=== PATIENT | female | born 1990 | race Caucasian/White ===

== ENCOUNTER 2020-02-15 20:39 | Observation (INO) | payer BC ==
[~2020-02-15] VITALS: Ht 160 cm; Wt 65.8 kg
[~2020-02-15 20:39] MED LIST: CIPR500T94 PO; NAPR-514 PO; TRAM-48 PO
--- NOTE | 2020-02-15 20:41 | PHYS DOC ---
Past History Past Medical History: No Pertinent History, Anxiety, UTI Past Surgical History: Other Smoking: Non-smoker Alcohol Use: Rarely Drug Use: None General Adult HPI: HPI: ".. I feel like I got the flu.. or maybe that Covid 19.. I was at [facility] office... they tested me for Covid.. 19.. they said it was negative.. but the test came back for H. Fl u.... so they started me on Augmentin.. I took two dosages.. but I still have feelings of fever.. and chills.. hurt all over.. I didn't get a flu shot this year.. I usually don't.... I went to [facility] yesterday.. the just gave me some tylenol... there are people at [place] that had Covid... 19.. I did go in to work for 8 hrs. on .. .. everyone just tells me to self isolate...:' I ve had this intractable headache.. I am very anxious... about this Covid 19 thing.. I tested negative.. but I still worried about .. " Patient is a 29 year old female who presents with above hx and complaints myalgia, arthralgia, malaise, fever, chills, nonproductive cough, sore throat, congestion, rhinorrhea, and flu like symptoms. Patient has been seen in Dr. Schaffer office, Alma Fuentes, and [facility] for same symptoms. Was started on Augmentin twice a day for H. Influenza. [facility] also wrote Rx for Bactrim, which pt. never filled. Patient does not get flu vaccinations. Her children are up-to-date with vaccinations and in the room with her. Patient states she got her vaccinations as a child.. Patient denies any travel outside the [place] area recently. Patient denies any history of immunosuppression. Patient is on city water. Has been exposed to inmates and coworkers at the [facility] who reportedly tested positive for Covid 19. Pt. somewhat poor historian. Initially omitted that she received at [facility] with and Without Contrast of Head for intractable headache work up at [facility] last night.. Pt. also started on amitriptyline 10 mg - this med was not filled. Pt. does not smoke or vape. Pt. denies prior lung issues. There is a family hx of DVT and aneurysms. Her child are well and up to date with their vaccinations. Review of Systems: Review of Systems: Constitutional: feelings of fever and chills Eyes: Denies change in visual acuity HENT: Hx. nasal congestion and sore throat Respiratory: Sometimes a cough Cardiovascular: Denies chest pain or edema GI: Denies abdominal pain, nausea, vomiting, bloody stools or diarrhea : Denies dysuria Musculoskeletal: States her entire body has been hurting the last week . Integument: Denies rash Neurologic: Denies headache, focal weakness or sensory changes Endocrine: Denies polyuria or polydipsia Lymphatic: Denies swollen glands Psychiatric: Denies depression . Hx. of anxiety Heart Score: Risk Factors: Risk Factors: DM, Current or recent (<one month) smoker, HTN, HLP, family history of CAD, obesity. Risk Scores: Score 0 - 3: 2.5% MACE over next 6 weeks - Discharge Home Score 4 - 6: 20.3% MACE over next 6 weeks - Admit for Clinical Observation Score 7 - 10: 72.7% MACE over next 6 weeks - Early Invasive Strategies Family History: Family History: Family hx Aneurysm, DVT, Current Medications: Current Meds: Augmentin Allergies: Allergies: Allergies Coded Allergies Type Severity Reaction Last Updated Verified No Known Drug Allergies 05/06/14 No Physical Exam: PE: Constitutional: Reports acute distress, non-toxic appearance. [] HENT: Normocephalic, atraumatic, bilateral external ears normal, oropharynx moist, mildly injected pharynx, post nasal drainage, no oral exudates, nose swollen turbinates with clear rhinorrhea Eyes: PERRLA, EOMI, conjunctiva normal, no discharge. Fundus benign- limited exam. Neck: Normal range of motion, no tenderness, supple, no stridor. [] Cardiovascular:Heart rate regular rhythm, no murmur [] Lungs & Thorax: Bilateral breath sounds equal apex with scattered wheezes on auscultation [] Abdomen: Bowel sounds normal, soft, no tenderness, no masses, no pulsatile masses. [] Skin: Warm, dry, no erythema, no rash. [] Back: No tenderness, no CVA tenderness. [] Extremities: No tenderness, no cyanosis, no clubbing, ROM intact, no edema. No cording appreciated. Neurologic: Alert and oriented X 3, normal motor function, normal sensory function, no focal deficits noted. DTRs +2 patellar and brachial. Straight leg lift without pain. Ambulatory without problems. Psychologic: Affect very anxious, judgement normal, mood normal. [] EKG: EKG: [] Radiology/Procedures: Radiology/Procedures: Reviewed CT- [facility] 02/14/2020 1830 ( See copy of report. - No mass effect, or sift, no subarachnoid hemorrhage. Did have findings of ground glass infiltrates superior segment of lungs- indicative of Viral or atypical pneumonitis. ) [][address] [id number] IMAGING REPORT Signed PATIENT: CECILIO PACK ACCOUNT: [id number] : 1990 LOCATION: ER AGE: 29 SEX: F EXAM STATUS: REG ER ORD. PHYSICIAN: SHILPA BEST MD REASON: fever, cough PROCEDURE: CHEST PA & LATERAL Chest radiograph 02/15/2020 9:01 PM INDICATION: Fever, cough COMPARISON: None available TECHNIQUE: Frontal and lateral views of the chest are provided. FINDINGS: The cardiomediastinal silhouette is within normal limits. There are no pleural effusions. There is no pulmonary vascular congestion. There is no pneumothorax. The lungs are clear. No significant osseous abnormality is identified. IMPRESSION: No acute cardiopulmonary process. Electronically signed by: Zhen Angulo MD (02/15/2020 9:39 PM) [facility] DICTATED AND SIGNED BY: ZHEN ANGULO MD DATE: 02/15/202138 CC: SHILPA BEST MD; ALMA FUENTES MD ~ Course & Med Decision Making: Course & Med Decision Making Pertinent Labs and Imaging studies reviewed. (See chart for details) Discussed benefit s and complications of spinal tap. Pt. at this time declines spinal tap. Exhibit s UCAR capacity. Patient to continue to push fluids. Get adequate rest. Self isolate for 14 days. No travel. Do not report to work until you complete a 14-day isolation. Avoid crowds. Wear a mask when you are outside the home for essential supplies. Take Tylenol and ibuprofen for pain. Complete your course of Augmentin. Follow-up primary care. Pt. just prior to discharged requested completion of Spinal Tap. Risk and benefits again discussed again.. Pt. has had spinal anesthesia for her previous pregnancies.. Procedure note. Spinal tap":-patient was positioned in a sitting position. Area of lumbar L3-L4 prepped with Betadine and then Kit prep. Sterile draping and use of sterile technique gloves, hat, mask, shield, and sterile gown and gloves. Reprepped lumbar sacral area. Injected 4 cc of 1% lidocaine with epinephrine at the L4 L5 interspaces. Use of a 22-gauge needle cannulated the spinal canal with 1 stick of return of clear fluid . Four aliquots of 1-2+ ml were collected in 4 tubes. Order for cell counts, glucose protein and cultures sent with tubes. No opening pressure done because of minimal spinal fluid return. Pt. tolerated procedure without problems. [] Impression: 1. Hx. of Viral syndrome 2. History of urinary tract infection 3.. History of an influenza B test that was positive ( ? Respiratory panel) - Reportedly not a blood culture - but nasal swab. 4. Hx. Possible Covid 19 Exposure.- worker at [employer] ( Currents have been negative) 5. Anxiety 6. Mild Elevation Sed Rate [address]- at [facility]- Pulmonary patchy ground glass infiltrates and peripheral nodular changes-= Viral type pneumonitis, vs Atypical Pneumonia 8. Intractable Headache- suspect viral vs atypical migraine Pt. admitted to Dr. Schaffer pending labs on spinal tap. With Neuro consult Dr. Monterroso. Will expand antibiotic coverage to cover atypical pneumonia and Haeomophilus Influenza pending labs results . ( Review of CT with and without contrast- from [facility] (Initial gram stain CSF tonight showed no organisms and monocytes.) No fever just prior to admit/ observation. Dragon Disclaimer: Dragon Disclaimer: This electronic medical record was generated, in whole or in part, using a voice recognition dictation system. Departure Departure: Disposition: HOME/RESIDENCE PRIOR TO ADM Condition: STABLE Referrals: ALMA FUENTES MD (PCP) COVID-19 Assessment COVID-19 Patient Risks: Age 65 or older: No Sign of co-morbidity: No Exp to person + for COVID: Yes (possible- co worker at [employer]) COVID-19 Assessment COVID-19 Patient Risks: Age 65 or older: No Sign of co-morbidity: No Exp to person + for COVID: Yes (possible co-worker exposure at [facility]?) Lower respiratory symptoms: Yes (atypical pneumonitis or atypical pneumonia on CT at [facility] - 02/14/2020) Fever: No Comments: Use PPE as supplied. Gloves, mask N 95, shield, hat, shoe covers, - Yellow gown, switch to steri gown in central line kit and gloves for spinal tap. Dragon Disclaimer This chart was dictated in whole or in part using Voice Recognition software in a busy, high-work load, and often noisy Emergency Department environment. It may contain unintended and wholly unrecognized errors or omissions. SHILPA BEST MD Feb 15, 2020 20:41
[2020-02-15] MEDS ORDERED: IV RINGERS SOLUTION,LACTATED 1,000 ML IV SCH (21:30)
--- NOTE | 2020-02-15 21:42 | RAD ---
Chest radiograph 02/15/2020 9:01 PM INDICATION: Fever, cough COMPARISON: None available TECHNIQUE: Frontal and lateral views of the chest are provided. FINDINGS: The cardiomediastinal silhouette is within normal limits. There are no pleural effusions. There is no pulmonary vascular congestion. There is no pneumothorax. The lungs are clear. No significant osseous abnormality is identified. IMPRESSION: No acute cardiopulmonary process. Electronically signed by: Kadi Downs MD (02/15/2020 9:39 PM) [facility]
[2020-02-15 21:44] LABS: BASO % 0 % (0-3); EOS % 0 % (0-3); HEMATOCRIT 38.5 % (36.0-47.0); HEMOGLOBIN 13.1 g/dL (12.0-15.5); LYMPH # 1.1 x10^3/uL (1.0-4.8); LYMPH % 19 % (24-48); MEAN CORPUSCULAR HEMOGLOBIN 32 pg (25-35); MEAN CORPUSCULAR HGB CONC 34 g/dL (31-37); MEAN CORPUSCULAR VOLUME 94 fL (79-100); MONO # 0.4 x10^3/uL (0.0-1.1); MONO % 7 % (0-9); NEUT # 4.2 x10^3uL (1.8-7.7); NEUT % 74 % (31-73); PLATELET COUNT 210 x10^3/uL (140-400); RED BLOOD COUNT 4.08 x10^6/uL (3.50-5.40); WHITE BLOOD COUNT 5.8 x10^3/uL (4.0-11.0)
[2020-02-15 21:47] LABS: AMPHETAMINE/METHAMPHETAMINE NEG (NEG); BARBITURATES NEG (NEG); BENZODIAZEPINES NEG (NEG); CANNABINOIDS NEG (NEG); COCAINE NEG (NEG); METHADONE NEG (NEG); OPIATES NEG (NEG); PHENCYCLIDINE NEG (NEG)
[2020-02-15 21:52] LABS: CALCIUM 8.5 mg/dL (8.5-10.1); CREATININE 0.8 mg/dL (0.6-1.0); GFR 84.2; POTASSIUM 3.4 mmol/L (3.5-5.1)
[2020-02-15 21:53] LABS: BILIRUBIN,URINE NEG (NEG); CLARITY,URINE CLEAR; COLOR,URINE YELLOW; GLUCOSE,URINE NEG (NEG)
[2020-02-15 21:54] LABS: BACTERIA,URINE FEW /HPF (0-FEW); NITRITE,URINE NEG (NEG); RBC,URINE OCC /HPF (0-2); SQUAMOUS EPITHELIAL CELL,UR OCC /LPF; UROBILINOGEN,URINE 0.2 mg/dL (0.2 mg/dL); WBC,URINE OCC /HPF (0-4)
[2020-02-15 21:59] LABS: ALBUMIN 3.5 g/dL (3.4-5.0); DIRECT BILIRUBIN 0.1 mg/dL (0.0-0.2); MAGNESIUM 1.9 mg/dL (1.8-2.4); TOTAL BILIRUBIN 0.7 mg/dL (0.2-1.0); TOTAL PROTEIN 7.8 g/dL (6.4-8.2)
[2020-02-15 22:00] LABS: INFLUENZA A PATIENT NEGATIVE (NEGATIVE); INFLUENZA B PATIENT NEGATIVE (NEGATIVE)
[2020-02-15 22:47] LABS: SEDIMENTATION RATE 31 (0-25)
[2020-02-15] MEDS ORDERED: IV NORMAL SALINE 100ML 100 ML ONE (22:49)
[2020-02-15] MEDS ORDERED: oxyCODONE/APAP 5/325 1 TAB TABLET PO ONE (23:15)
[2020-02-16] MEDS ORDERED: MORPHINE SULFATE 2 MG/ML DISP.SYRIN. ONE (00:08)
[2020-02-16] MEDS ORDERED: MORPHINE SULFATE 2 MG/ML DISP.SYRIN. IVP ONE (00:15)
[2020-02-16] MEDS ORDERED: MORPHINE SULFATE 10 MG/ML SYRINGE. SQ ONE ×2 (00:30→01:00)
[2020-02-16 00:58] LABS: CSF PROTEIN 23.1 mg/dL (15.0-45.0)
[2020-02-16] MEDS ORDERED: ONDANSETRON PF 4 MG/2 ML VIAL. IVP ONE (01:00)
[2020-02-16] MEDS ORDERED: MORPHINE SULFATE 2 MG/ML DISP.SYRIN. IV ONE (01:00)
[2020-02-16] MEDS ORDERED: IV RINGERS SOLUTION,LACTATED 1,000 ML IV ONE (01:00)
[2020-02-16 01:09] LABS: CSF CLARITY CLEAR; CSF COLOR COLORLESS
[2020-02-16 01:10] LABS: CSF MON % 100 %; CSF OTHER % 0 %; CSF PMN % 0 %; CSF RBC COUNT 0; CSF WBC COUNT 2
[2020-02-16] MEDS ORDERED: ACETAMINOPHEN 325 MG TABLET PO PRN (01:15)
[2020-02-16] MEDS ORDERED: ONDANSETRON PF 4 MG/2 ML VIAL. IVP PRN (01:15)
[2020-02-16] MEDS ORDERED: AZITHROMYCIN 500 MG in IV NORMAL SALINE 250ML 250 ML IV ONE (01:30)
[2020-02-16] MEDS ORDERED: IV NORMAL SALINE 250ML 250 ML ONE (02:14)
[2020-02-16] MEDS ORDERED: AZITHROMYCIN 500 MG VIAL. IV ONE (02:14)
[2020-02-16] MEDS: IV RINGERS SOLUTION,LACTATED 1,000 ML IV SCH ×3 (02:50→11:15)
[2020-02-16 06:23] VITALS: BP 96/63
[2020-02-16] MEDS: MORPHINE SULFATE 2 MG/ML DISP.SYRIN. IV PRN ×2 (06:42→11:05)
[2020-02-16] MEDS ORDERED: IPRATRPIUM/ALBUTEROL 0.5/2.5MG 3 ML NEBU. NEB SCH (08:00)
[2020-02-16] MEDS ORDERED: methylPREDNISolone SOD SUCC PF 40 MG/ML VIAL. IV ONE (10:15)
[2020-02-16 10:38] VITALS: BP 93/58
[2020-02-16 14:59] VITALS: BP 190/75
--- NOTE | 2020-02-16 20:21 | HP ---
ADMIT DATE: 02/16/2020 HISTORY OF PRESENT ILLNESS: A 38-year-old female who has been ill for the last couple of weeks. She has been negative for COVID; however, the patient says she is so weak she cannot get out of bed. She has been encouraged over a week ago to enter into the hospital because of this neck and headache and the concern for meningitis was entertained. The patient at that time refused, although she has been bedridden for the past week, so she says and consequently became increasingly worse. She has intractable headache with some nausea. The patient otherwise had been started on Augmentin. Apparently, she did have Haemophilus influenza and Klebsiella pneumoniae in her sputum and as a result of this, the patient was admitted by our ER physicians. She was complaining of myalgias, arthralgias, malaise, fever, chills, nonproductive cough, sore throat, congestion, rhinorrhea and the like. Otherwise, the patient was admitted for the multiplicity of medical problems as noted above. 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 Drinks soda pop only apparently. FAMILY HISTORY: Kidney disease with mother. Father has hypercholesterolemia and esophageal cancer. ALLERGIES: No known drug allergies. HOME MEDICATIONS: She was on Augmentin 875 one b.i.d. SOCIAL HISTORY: The patient denies smoking, alcohol or drug use. Lives at home. REVIEW OF SYSTEMS: The patient is noted, says she has been running a fever up to 101, blood pressure varies tremendously (NC) that is not quite clear of a mistake was made in the chart as a blood pressure one from 93/58 recorded to 190/75, which probably is a typographical error, pulse of 28, afebrile. PHYSICAL EXAMINATION: GENERAL: The patient otherwise is alert, is noted complaining of a headache generalized over, but no photophobia, no nausea or vomiting at this time. NECK: Supple enough to be able to move from one side to the other and touch chin to the chest without any noted discomfort. HEENT: The patient's otherwise eyes were PERRLA, EOMI. Sclerae clear. Fundi benign. The mouth and throat were normal. NECK: Supple, without JVD, carotid bruits or thyromegaly. LUNGS: Diminished, but clear. CARDIOVASCULAR: Regular sinus rhythm. ABDOMEN: Soft, nontender, no rebound or guarding. Positive bowel sounds. No hepatosplenomegaly was noted. LABORATORY DATA: The patient's labs are basically normal and her CBC, sed rate of 31. D-dimer was negative. Sodium and potassium 135 and 3.4. Drug screen negative. Urine hCG negative. Serology negative for group A as well as influenza B. She was complaining of a sore throat. IMPRESSION: Fever of unknown etiology, acute bronchitis secondary to Haemophilus influenzae and Klebsiella pneumoniae, anxiety, apparently came in contact with someone COVID-19, told her to stay in isolation and to make further evaluation on her as an outpatient. Regular diet, decreased activity, in isolation for the next [address] RASHMI DOWNEY MD DR: BAKARI/reid JOB#: [id number] / [id number]
[2020-02-16] MEDS ORDERED: LACTOBACILLUS RHAMNOSUS GG 1 CAPSULE. PO SCH (21:00)
[2020-02-16] MEDS ORDERED: AZITHROMYCIN 250 MG TABLET. PO SCH (21:00)
[2020-02-18 19:07] LABS: HEMOPHILIS FLU AB >9.00 ug/mL (.)
[2020-02-19 11:07] LABS: ALBUMIN,SERUM 4.4 g/dL (3.9-5.0); CSF IGG INDEX 0.6 (0.0-0.7)
--- NOTE | 2020-02-20 11:28 | DS ---
DATE OF DISCHARGE: 02/16/2020 HOSPITAL COURSE: A 29-year-old female who has been ill for the last couple of weeks, had refused normally to be admitted to the hospital when she began to have problems with neck pain and headache and was having problems that did not resolve within the last 2 weeks. The patient had intractable headache with nausea. The patient complained of myalgias as well as arthralgias. The patient came in and she said she had a temperature up to 101 degrees and blood pressure down to 93/58. The patient was admitted and placed on further observation and evaluation, given IV fluids. The patient's labs are basically unremarkable as far as her serology was negative for influenza, group A strep and IgG4 influenza showed that she had antibodies against the Haemophilus influenza bacteria. In any case, the patient made good progress, demanded to be discharged home and had a spinal tap, which was basically unremarkable. Possible exposure to the COVID-19. Possible viral pneumonitis versus atypical pneumonia. As noted, spinal tap was negative. She was discharged home per her request and she will be monitored as an outpatient and make further evaluation on her as noted. RASHMI DOWNEY MD DR: BAKARI/reid JOB#: [id number] / [id number]
[2020-02-26 10:07] LABS: VIRAL CULT FINAL No virus isolated. (.)
== END 2020-02-16 16:50 | disposition home or self-care (01) ==
LOC: ER 20:39 → 1 SOUTH 02-16 00:45
PROVIDERS: ADMIT Family Medicine; ATTEND Family Medicine
DX: J20.1 Acute bronchitis due to Hemophilus influenzae (principal); G47.30 Sleep apnea, unspecified; F41.9 Anxiety disorder, unspecified; J18.9 Pneumonia, unspecified organism; Z74.01 Bed confinement status; Z87.440 Personal history of urinary (tract) infections; Z20.828 Contact with and (suspected) exposure to other viral communicable diseases
CPT/HCPCS: 36415; 71046; 80048; 80076; 80307; 81001; 81025; 82550; 82787; 82945; 83605; 83735; 84157; 85025; 85379; 85651; 86317; 87040; 87070; 87071; 87075; 87086; 87102; 87116; 87252; 87804; 87880; 89051; 96365; 96367; 96372; 96375; 96376; 99284; G0378; J0456; J0696; J2270; J2920; J7050; J7120; G0379

== ENCOUNTER 2021-07-21 10:28 | Emergency (ER) | payer BC ==
[~2021-07-21] VITALS: Ht 160 cm; Wt 79.9 kg
--- NOTE | 2021-07-21 11:23 | PHYS DOC ---
Past History Past Medical History: No Pertinent History, Anxiety, UTI (MEDHAT CURRY APRN) Past Surgical History: Other Additional Past Surgical Histo: RHINOPLASTY, D&C, WISDOM, LEEP (MEDHAT CURRY APRN) Smoking: Non-smoker Alcohol Use: Rarely Drug Use: None (MEDHAT CURRY APRN) General Adult EDM: Chief Complaint: OTHER COMPLAINTS HPI: HPI: Patient is a 30-year-old female being seen in the ER for no movement. Patient is 31 weeks she states that she has not felt any movement in 24 hours. Her OB is Dr. Chavez at [facility]. She denies any vaginal bleeding, abdominal pain, nausea, vomiting, fevers. Her vital signs are stable at this time. (MEDHAT CURRY APRN) Review of Systems: Review of Systems: 14 body systems of the review of systems have been reviewed. See HPI for pertinent positive and negative responses, otherwise all other systems are negative, nonpertinent or noncontributory (MEDHAT CURRY APRN) Allergies: Allergies: Allergies Coded Allergies Type Severity Reaction Last Updated Verified No Known Drug Allergies 05/06/14 No (MEDHAT CURRY APRN) Physical Exam: PE: Constitutional: Well developed, well nourished, no acute distress, non-toxic appearance. [] HENT: Normocephalic, atraumatic, bilateral external ears normal, oropharynx moist, no oral exudates, nose normal. [] Eyes: PERRL, EOMI, conjunctiva normal, no discharge. [] Neck: Normal range of motion, no stridor Cardiovascular:Heart rate regular rhythm, no murmur [] Lungs & Thorax: Bilateral breath sounds clear to auscultation [] Abdomen: Bowel sounds normal, soft, no tenderness, Skin: Warm, dry, no erythema, no rash. [] Back: Normal range of motion Extremities: No tenderness, no cyanosis, no clubbing, ROM intact, no edema. [] Neurologic: Alert and oriented X 3, normal motor function, normal sensory function, no focal deficits noted. [] Psychologic: Affect normal, judgement normal, mood normal. [] (MEDHAT CURRY APRN) Current Patient Data: Vital Signs: Vital Signs Date Time Temp Pulse Resp B/P (MAP) Pulse Ox O2 Delivery O2 Flow Rate FiO2 9/14/21 10:36 98.9 95 18 118/73 (88) (MEDHAT CURRY APRN) EKG: EKG: [] (MEDHAT CURRY APRN) Radiology/Procedures: Radiology/Procedures: PROCEDURE: OB LIMITED EXAM: OB ULTRASOUND, > 14 WEEKS HISTORY: No movement. COMPARISON: None. TECHNIQUE: Multiple grayscale images, color Doppler, and M-mode images of the uterus are obtained. FINDINGS: There is a single intrauterine gestation in cephalic presentation. The placenta is anterior in location without evidence of placenta previa. The amount of amniotic fluid appears low normal with a single largest pocket measuring 7.33 cm. Amniotic fluid index is 10.7 cm. Cervical length is 3.0 cm. Biometrical data: BPD = 8.2 cm for 33 weeks 1 days. HC = 30.3 cm for 33 weeks 4 days. AC = 30.3 cm for 34 weeks 2 days. FL = 6.4 cm for 33 weeks 1 days. HC/AC ratio = 1.0. Overall, the estimated sonographic gestational age is 33 weeks and 4 days for an estimated date of delivery of 09/04/2021. The estimated date of delivery provided by the last menstrual period is 09/18/2021. Estimated weight is 2279 grams. A 4 chamber heart is identified with positive cardiac activity. The estimated heart rate is 127 beats per minute. There is normal body motion. No practice breathing motion is seen. There is a four-chamber heart. The bladder is identified. The brain is unremarkable. The remainder of the anatomy is not formally assessed on this exam. The maternal adnexal regions are unremarkable. IMPRESSION: 1. Single intrauterine fetus with normal heart rate and gestational age based on ultrasound measurements of 33 weeks and 4 days. 2. Low normal SAM of 10.7 cm. 3. Note is made that the anatomy is not formally assessed on this exam. Electronically signed by: Alma Stanley MD (07/21/2021 11:28 AM) [id number] DICTATED AND SIGNED BY: ALMA STANLEY MD DATE: 07/21/21 1123 CC: ALMA FUENTES MD; MEDHAT CURRY APRN ~MTH0 0 [] (MEDHAT CURRY APRN) Heart Score: C/O Chest Pain: No Risk Factors: Risk Factors: DM, Current or recent (<one month) smoker, HTN, HLP, family history of CAD, obesity. Risk Scores: Score 0 - 3: 2.5% MACE over next 6 weeks - Discharge Home Score 4 - 6: 20.3% MACE over next 6 weeks - Admit for Clinical Observation Score 7 - 10: 72.7% MACE over next 6 weeks - Early Invasive Strategies (MEDHAT CURRY APRN) Course & Med Decision Making: Course & Med Decision Making Pertinent Labs and Imaging studies reviewed. (See chart for details) [] Patient is a 30-year-old female being seen in the ER for no movement x24 hours at 31 weeks . heart tones obtained in the ER. Urinalysis performed due to patient's history of urinary tract infections. UA was negative for infection but yeast is noted. no leuks/bacteria, squamous cells noted, showing contamination. Patient discharged with topical miconazole for 7 days. Ultrasound performed. It showed a single intrauterine with a normal heart rate of 127 measuring at 33 weeks and 4 days. Patient advised to follow-up with her [employer]ELOPER tomorrow regarding her ER visit and continue to monitor for movement. Patient states she believes she is going to buy a Doppler on [employer] to give her peace of mind. I discussed with patient all findings and diagnostic testing as well as the need to follow-up with PCP for further evaluation and treatment or return to the ER if any new or worsening s ymptoms. Strict return precautions were also discussed at length. Patient voiced understanding and agreement with the plan. Patient is hemodynamically stable at the time of disposition. (MEDHAT CURRY APRN) Course & Med Decision Making I was the Attending physician on the above date of service of this patient. This patient was evaluated, examined, treated, and dispositioned from the emergency department by the mid-level practitioner. I reviewed care of patient with RUBBER WORKER and agreed to plan and disposition as stated Electronically signed, Trudy Wolf DO (TRUDY WOLF DO) Elisa Disclaimer: Elisa Disclaimer: This electronic medical record was generated, in whole or in part, using a voice recognition dictation system. (MEDHAT CURRY APRN) Departure Departure: Impression: Primary Impression: movement present Qualified Codes: Z34.93 - Encounter for supervision of normal , unspecified, third trimester Additional Impression: Yeast infection involving the vagina and surrounding area Disposition: 01 HOME / SELF CARE / HOMELESS Condition: GOOD Referrals: ALMA FUENTES MD (PCP) Patient Instructions: Monitoring, Movement Assessment Additional Instructions: You were seen in the ER for no movement in . Your urinarlysis was positive for yeast, please take prescription as directed. heart tones were normal. The ultrasound showed a single intrauterine with a normal heart rate measuring at 33 weeks and 4 days. Please follow-up with your OB tomorrow regarding your ER visit. Please continue to monitor for movement. If you notice decreased movement, vaginal bleeding, abdominal pain, intractable nausea or vomiting please return to the ER immediately. EMERGENCY DEPARTMENT GENERAL DISCHARGE INSTRUCTIONS Thank you for coming to [facility] (ED) today and trusting us with you care. We trust that you had a positivie experience in our Emergency Department. If you wish to speak to the department management, you may call the director at [phone]. YOUR FOLLOW UP INSTRUCTIONS ARE FOLLOWS: 1. Do you have a private Doctor? If you do not have a private doctor, please ask for a resource list of physicians or clinics that may be able to assist you with follow up care. 2. The Emergency Physician has interpreted your x-rays. The X-Ray specialist will also review them. If there is a change in the findings, you will be notified in 48 hours when at all possible. 3. A lab test or culture has been done, your results will be reviewed and you will be notified if you need a change in treatment. ADDITIONAL INSTRUCTIONS AND INFORMATION: 1. Your care today has been supervised by a physician who is specially trained in emergency care. Many problems require more than one evaluation for a complete diagnosis and treatment. We recommend that you schedule your follow up appointment as recommended to ensure complete treatment of you illness or injury. If you are unable to obtain follow up care and continue to have a problem, or if your condition worsens, we recommend that you return to the ED. 2. We are not able to safely determine your condition over the phone nor are we able to give sound medical advice over the phone. For these safety reasons, if you call for medical advice we will ask you to come to the ED for further evaluation. 3. If you have any questions regarding these discharge instructions please call the ED at [phone]. SAFETY INFORMATION: In the interest of safety, wellness, and injury prevention; we encourage you to wear your sealbelt, if you smoke; quite smoking, and we encourage family to use a protective helmet for bicycling and other sporting events that present an increased risk for head injury. IF YOUR SYMPTOMS WORSEN OR NEW SYMPTOMS DEVELOP, OR YOU HAVE CONCERNS ABOUT YOUR CONDITION; OR IF YOUR CONDITION WORSENS WHILE YOU ARE WAITING FOR YOUR FOLLOW UP APPOINTMENT; EITHER CONTACT YOUR PRIMARY CARE DOCTOR, THE PHYSICIAN WHOSE NAME AND NUMBER YOU WERE GIVEN, OR RETURN TO THE ED IMMEDIATELY. Scripts Miconazole Nitrate (MONISTAT 7) 45 Gm Cream.appl 1 APPFUL VG QHS for vaginal candidiasis for 7 Days, #45 GM 0 Refills Prov: MEDHAT CURRY APRN 07/21/21 MEDHAT CURRY APRN Jul 21, 2021 11:23 TRUDY WOLF DO Jul 22, 2021 06:18
--- NOTE | 2021-07-21 11:30 | RAD ---
EXAM: OB ULTRASOUND, > 14 WEEKS HISTORY: No movement. COMPARISON: None. TECHNIQUE: Multiple grayscale images, color Doppler, and M-mode images of the uterus are obtained. FINDINGS: There is a single intrauterine gestation in cephalic presentation. The placenta is anterior in locati on without evidence of placenta previa. The amount of amniotic fluid appears low normal with a single largest pocket measuring 7.33 cm. Amniotic fluid index is 10.7 cm. Cervical length is 3.0 cm. Biometrical data: BPD = 8.2 cm for 33 weeks 1 days. HC = 30.3 cm for 33 weeks 4 days. AC = 30.3 cm for 34 weeks 2 days. FL = 6.4 cm for 33 weeks 1 days. HC/AC ratio = 1.0. Overall, the estimated sonographic gestational age is 33 weeks and 4 days for an estimated date of de livery of 09/04/2021. The estimated date of delivery provided by the last menstrual period is 021. Estimated weight is 2279 grams. A 4 chamber heart is identified with positive cardiac activity. The estimated heart rate is 127 beats per minute. There is normal body motion. No practice breathing motion is seen. There is a four-chambe r heart. The bladder is identified. The brain is unremarkable. The remainder of the anatomy is not formally assessed on this exam. The maternal adnexal regions are unremarkable. IMPRESSION: 1. Single intrauterine fetus with normal heart rate and gestational age based on ultrasound measureme nts of 33 weeks and 4 days. 2. Low normal SAM of 10.7 cm. 3. Note is made that the anatomy is not formally assessed on this exam. Electronically signed by: Alma Samuel MD (07/21/2021 11:28 AM) [id number]
[2021-07-21 11:32] LABS: BACTERIA,URINE 0 /HPF (0-FEW); BILIRUBIN,URINE NEG (NEG); CLARITY,URINE CLEAR; COLOR,URINE YELLOW; GLUCOSE,URINE NEG (NEG); NITRITE,URINE NEG (NEG); SQUAMOUS EPITHELIAL CELL,UR MANY /LPF; UROBILINOGEN,URINE 0.2 mg/dL (0.2 mg/dL); WBC,URINE OCC /HPF (0-4); YEAST,URINE PRESENT /HPF
[2021-07-21] MEDS ORDERED: MICO45CR41 VG (11:49)
[2021-07-21 12:00] VITALS: BP 109/69
== END 2021-07-21 12:05 | disposition home or self-care (01) ==
LOC: ER 10:28
DX: O23.593 Infection of other part of genital tract in pregnancy, third trimester (principal); B37.3 Candidiasis of vulva and vagina; O23.43 Unspecified infection of urinary tract in pregnancy, third trimester; Z3A.31 31 weeks gestation of pregnancy
CPT/HCPCS: 76815; 81001; 99284

== ENCOUNTER 2021-09-08 21:22 | Emergency (ER) | payer OTHER ==
[~2021-09-08] VITALS: Ht 160 cm; Wt 86.5 kg
[~2021-09-08 21:22] MED LIST changes: +MICO45CR41 VG
[2021-09-08 22:00] VITALS: BP 111/80
--- NOTE | 2021-09-08 22:03 | PHYS DOC ---
Past History Past Medical History: No Pertinent History, Anxiety, UTI Past Surgical History: Other Additional Past Surgical Histo: RHINOPLASTY, D&C, WISDOM, LEEP Smoking: Non-smoker Alcohol Use: Rarely Drug Use: None General Adult EDM: Chief Complaint: OTHER COMPLAINTS HPI: HPI: 31-year-old female who is 38 weeks presents because she has not been feeling the baby as much today and wanted us to do heart tones. The patient said at triage that she was having neck pain, but she told me that she just wanted to hear the heartbeat to make sure things are okay. I asked her if she called her OB and she said no. She has not had consistent contractions. She said no significant vaginal discharge. She does not believe she is in labor. She has no other complaints at this time. Review of Systems: Review of Systems: Constitutional: Denies fever or chills Eyes: Denies change in visual acuity HENT: Denies nasal congestion or sore throat Respiratory: Denies cough or shortness of breath Cardiovascular: Denies chest pain or edema GI: Denies abdominal pain, nausea, vomiting, bloody stools or diarrhea : Denies dysuria Musculoskeletal: Denies back pain or joint pain Integument: Denies rash Neurologic: Denies headache, focal weakness or sensory changes Endocrine: Denies polyuria or polydipsia Lymphatic: Denies swollen glands Psychiatric: Denies depression or anxiety Allergies: Allergies: Allergies Coded Allergies Type Severity Reaction Last Updated Verified No Known Drug Allergies 05/06/14 No Physical Exam: PE: Constitutional: Well developed, well nourished, no acute distress, non-toxic cynthia earance. [] HENT: Normocephalic, atraumatic, bilateral external ears normal, oropharynx moist, no oral exudates, nose normal. [] Eyes: PERRLA, EOMI, conjunctiva normal, no discharge. [] Neck: Normal range of motion, no tenderness, supple, no stridor. [] Cardiovascular:Heart rate regular rhythm, no murmur [] Lungs & Thorax: Bilateral breath sounds clear to auscultation [] Abdomen: Bowel sounds normal, gravid uterus, no tenderness, no masses, no pulsatile masses. [] Skin: Warm, dry, no erythema, no rash. [] Back: No tenderness, no CVA tenderness. [] Extremities: No tenderness, no cyanosis, no clubbing, ROM intact, no edema. [] Neurologic: Alert and oriented X 3, normal motor function, normal sensory function, no focal deficits noted. [] Psychologic: Affect normal, judgement normal, mood normal. [] Current Patient Data: Labs: Laboratory Tests Test 09/08/21 21:50 Glucose (Fingerstick) 90 mg/dL (70-99) EKG: EKG: [] Radiology/Procedures: Radiology/Procedures: [] Heart Score: C/O Chest Pain: N/A Risk Factors: Risk Factors: DM, Current or recent (<one month) smoker, HTN, HLP, family history of CAD, obesity. Risk Scores: Score 0 - 3: 2.5% MACE over next 6 weeks - Discharge Home Score 4 - 6: 20.3% MACE over next 6 weeks - Admit for Clinical Observation Score 7 - 10: 72.7% MACE over next 6 weeks - Early Invasive Strategies Course & Med Decision Making: Course & Med Decision Making Pertinent Labs and Imaging studies reviewed. (See chart for details) The patient told us that she had gestational diabetes when checked her blood sugar. It was within normal limits. Her heart tones are within normal limits. No other work-up is indicated at this time. I greatly stressed to the patient that from this point on in her her first phone call should be to the on-salesperson [facility] needs at her OB office. She states verbal understanding. She is stable for discharge at this time. [] Dragon Disclaimer: Dragon Disclaimer: This electronic medical record was generated, in whole or in part, using a voice recognition dictation system. Departure Departure: Impression: Primary Impression: Qualified Codes: Z3A.38 - 38 weeks gestation of Disposition: HOME / SELF CARE / HOMELESS Condition: STABLE Referrals: LINDSAY FUENTES MD (PCP) Patient Instructions: - Third Trimester, [id number] MADDY FELDER DO Sep 08, 2021 22:03
== END 2021-09-08 22:41 | disposition home or self-care (01) ==
LOC: ER 21:22
DX: O24.419 Gestational diabetes mellitus in pregnancy, unspecified control (principal); O26.893 Other specified pregnancy related conditions, third trimester; Z3A.38 38 weeks gestation of pregnancy
CPT/HCPCS: 82947; 99282